=== PATIENT | male | born 1960 | race African-American/Black ===

== ENCOUNTER 2018-12-26 13:47 | Inpatient (IN) | payer OTHER ==
[2018-12-26 17:27] VITALS: BMI 21.1
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
[2018-12-26] MEDS ORDERED: ALBUTEROL SO4 8 GM HFA INHALER IH PRN (18:32)
[2018-12-26] MEDS ORDERED: hydrOXYzine PAMOATE 25 MG CAPSULE (FP) PO PRN (18:40)
[2018-12-26] MEDS ORDERED: ACETAMINOPHEN 325 MG TABLET (FP) PO PRN ×2 (18:40)
[2018-12-26] MEDS ORDERED: METHOCARBAMOL 500 MG TABLET PO PRN (18:40)
[2018-12-26] MEDS ORDERED: MENTHOL/PHENOL 1 EACH UD MM PRN (18:40)
[2018-12-26] MEDS ORDERED: MAGNESIUM HYDROX 2400MG/30ML ORAL SUSPENSION 30 ML CUP PO PRN (18:40)
[2018-12-26] MEDS ORDERED: MAG HYDROX/AL HYDROX/SIMETH 30 ML UNIT-DOSE CUP PO PRN (18:40)
[2018-12-26] MEDS ORDERED: chlordiazePOXIDE HCL 25 MG CAPSULE PO PRN (18:40)
[2018-12-26] MEDS ORDERED: IBUPROFEN 400 MG TABLET (FP) PO PRN (18:40)
[2018-12-26] MEDS ORDERED: NICOTINE POLACRILEX 2 MG GUM BUC PRN (18:40)
[2018-12-26] MEDS ORDERED: MAGNESIUM CITRATE 300 ML BOTTLE PO PRN (18:40)
[2018-12-26] MEDS ORDERED: PATIENT'S OWN MEDICATION (NON-FORMULARY) (Metformin Hcl [Glucophage] 1,000 MG) PO SCH (22:00)
[2018-12-26] MEDS: ATORVASTATIN CA 10 MG TABLET (FP) PO SCH (22:07)
[2018-12-26] MEDS: THIAMINE HCL 100 MG TABLET (FP) PO SCH (22:07)
[2018-12-26] MEDS: chlordiazePOXIDE HCL 25 MG CAPSULE PO SCH (22:07)
[2018-12-26] MEDS: GABAPENTIN 300 MG CAPSULE (FP) PO SCH (22:07)
[2018-12-27] MEDS: GABAPENTIN 300 MG CAPSULE (FP) PO SCH ×3 (05:15→22:25)
[2018-12-27] MEDS: chlordiazePOXIDE HCL 25 MG CAPSULE PO SCH ×4 (05:15→22:25)
[2018-12-27] MEDS: metFORMIN HCL 500 MG TABLET (FP) PO SCH ×2 (06:12→18:12)
[2018-12-27 10:02] LABS: HEMATOCRIT 38.6 % (35.4-49); HEMOGLOBIN 12.9 GM/dL (11.7-16.9); MCH 29.8 pg (25.7-33.7); MCHC 33.4 g/dl (32.0-35.9); MEAN CELL VOLUME 89.2 fl (80-96); MEAN PLT VOLUME 8.6 fl (7.5-11.1); PLATELET COUNT 197 K/MM3 (134-434); RBC 4.33 M/mm3 (4.00-5.60); RDW 14.3 % (11.9-15.9); WHITE BLOOD COUNT 2.1 K/mm3 (4.0-10.0)
[2018-12-27 10:20] LABS: ALBUMIN 3.2 g/dl (3.4-5.0); BILIRUBIN,TOTAL 0.2 mg/dL (0.2-1); CALCIUM 9.3 mg/dL (8.5-10.1); CREATININE 0.8 mg/dL (0.55-1.3); POTASSIUM 4.2 mmol/L (3.5-5.1); TOT PROT 7.8 g/dl (6.4-8.2)
--- NOTE | 2018-12-27 10:53 | EKG ---
Test Reason : Blood Pressure : / mmHG Vent. Rate : 061 BPM Atrial Rate : 061 BPM P-R Int : 210 ms QRS Dur : 104 ms QT Int : 450 ms P-R-T Axes : 045 028 056 degrees QTc Int : 453 ms SINUS RHYTHM WITH 1ST DEGREE A-V BLOCK POSSIBLE LEFT ATRIAL ENLARGEMENT LEFT VENTRICULAR HYPERTROPHY ST ELEVATION, CONSIDER EARLY REPOLARIZATION, PERICARDITIS, OR INJURY NONSPECIFIC T WAVE ABNORMALITY ABNORMAL ECG NO PREVIOUS ECGS AVAILABLE Confirmed by VERA SO MD ([id number]) on 12/27/2018 10:53:20 AM Referred By: Confirmed By:VERA SO MD
[2018-12-27] MEDS: NICOTINE 14 MG/24 HOURS TOPICAL PATCH TD SCH (11:09)
[2018-12-27] MEDS: amLODIPine BESYLATE 5 MG TABLET (FP) PO SCH (11:10)
[2018-12-27] MEDS: PRENATAL VITAMINS W/ FOLIC ACID TABLET (FP) PO SCH (11:10)
--- NOTE | 2018-12-27 12:06 | PN ---
S CIWA - CIWA Score Nausea/Vomitin-No Nausea/No Vomiting Muscle Tremors: 4-Moderate,w/Arms Extend Anxiety: 4-Mod. Anxious/Guarded Agitation: 2 Paroxysmal Sweats: No Perspiration Orientation: 0-Oriented Tacttile Disturbances: 0-None Auditory Disturbances: 0-None Visual Disturbances: 0-None Headache: 0-None Present CIWA-Ar Total Score: 10 BHS Progress Note (SOAP) Subjective: C/O ANXIETY, SWEATS, FATIGUE, INTERMITTENT SLEEP. ON MMTP WITH METHADONE 40 MG PO DAILY, L/D 12/26/18 VERIFIED. Objective: 12/27/18 12:06 Vital Signs 12/27/18 12/27/18 06:03 09:13 Temperature 98.1 F 98.1 F Pulse Rate 72 80 Respiratory 18 16 Rate Blood Pressure 115/67 132/79 Laboratory Tests 12/27/18 12/27/18 12/27/18 05:14 07:45 07:45 WBC 2.1 L RBC 4.33 Hgb 12.9 Hct 38.6 MCV 89.2 MCH 29.8 MCHC 33.4 RDW 14.3 Plt Count 197 MPV 8.6 Sodium 141 Potassium 4.2 Chloride 103 Carbon Dioxide 32 Anion Gap 6 L BUN 19 H Creatinine 0.8 Est GFR (CKD-EPI)AfAm 115.74 Est GFR (CKD-EPI)NonAf 99.86 POC Glucometer 94 Random Glucose 113 H Calcium 9.3 Total Bilirubin 0.2 AST 27 ALT 17 Alkaline Phosphatase 95 Total Protein 7.8 Albumin 3.2 L Assessment: 12/27/18 12:07 WITHDRAWAL SX Plan: CONTINUE DETOX. METHADONE 40 MG PO DAILY.
[2018-12-27] MEDS ORDERED: METHADONE HCL 40 MG DISPERSABLE TABLET PO ONE (12:15)
--- NOTE | 2018-12-27 17:58 | CONSULT ---
[facility] Psychiatric Consult - Data Date of interview: 12/27/18 Substance Abuse History: Smoking history: Current every day smoker. Have you smoked in the past 12 months: No. Aproximately how many cigarettes per day: 5. Cigars Per Day: 0. Hx Chewing Tobacco Use: No. Initiated information on smoking cessation: Yes. 'Breaking Loose' booklet given: 12/26/18. - Substance & Tx. History. Hx Alcohol Use: Yes. Hx Substance Use: Yes. Substance Use Type : Alcohol, Cocaine. Hx Substance Use Treatment: Yes (Last detox one year at [facility] - Substances abused. Alcohol. Substance route: Oral. Frequency: Daily. Amount used: 1 pint of vodka/day. Age of first use: 12. Date of last use: 12/26/18. Cocaine. Substance route: Inhalation. Frequency: 1-2 times per week. Amount used: $50 -200. Age of first use: 37. Date of last use: 12/24/18 Medical History: Chronic back pain, Spinal fusion, HIV, HTN, DM II Additional Comment: Urine drug screen results: THC-Marijuana, FAISAL-Cocaine, MTD- Methadone, BUP-Suboxone. Noted. Mental Status Exam - Mental Status Exam Alert and Oriented to: Place, Person Cognitive Function: Grossly Intact Patient Appearance: Unkempt, Disheveled Mood: Nervous, Withdrawn Affect: Mood Congruent, Constricted Patient Behavior: Sedated, Fatigued, Cooperative Speech Pattern: Delayed, Slurred Voice Loudness: Moderately Soft/Quiet Thought Process: Goal Oriented Thought Disorder: Not Present Hallucinations: Denies Suicidal Ideation: Denies Homicidal Ideation: Denies Insight/Judgement: Poor Sleep: Well Appetite: Good Muscle strength/Tone: Normal Gait/Station: Other (slow, unsteady) Psychiatric Findings - Problem List ([place] 1, 2,3) (1) Alcohol dependence with uncomplicated withdrawal Current Visit: Yes Status: Acute (2) Opioid dependence on agonist therapy Current Visit: Yes Status: Chronic (3) Cocaine dependence Current Visit: Yes Status: Chronic Qualifiers: Substance use status: uncomplicated Qualified Code(s): F14.20 - Cocaine dependence, uncomplicated (4) Nicotine dependence Current Visit: Yes Status: Chronic Qualifiers: Nicotine product type: cigarettes Substance use status: uncomplicated Qualified Code(s): F17.210 - Nicotine dependence, cigarettes, uncomplicated (5) Substance induced mood disorder Current Visit: Yes Status: Chronic (6) History of depression Current Visit: Yes Status: Chronic (7) Non-compliance Current Visit: Yes Status: Chronic - Initial Treatment Plan Initial Treatment Plan: Psychoeducation. Patient declines to resume psychotropic medications other than detoxification drugs. Sleep hygiene. Observation.
[2018-12-27] MEDS: ATORVASTATIN CA 10 MG TABLET (FP) PO SCH (22:25)
[2018-12-27] MEDS: THIAMINE HCL 100 MG TABLET (FP) PO SCH (22:25)
[2018-12-28] MEDS: GABAPENTIN 300 MG CAPSULE (FP) PO SCH ×3 (05:04→22:59)
[2018-12-28] MEDS: METHADONE HCL 40 MG DISPERSABLE TABLET PO SCH (05:04)
[2018-12-28] MEDS: metFORMIN HCL 500 MG TABLET (FP) PO SCH ×2 (06:26→17:48)
[2018-12-28] MEDS: chlordiazePOXIDE HCL 25 MG CAPSULE PO SCH ×3 (06:27→17:51)
[2018-12-28] MEDS: NICOTINE 14 MG/24 HOURS TOPICAL PATCH TD SCH (11:01)
[2018-12-28] MEDS: PRENATAL VITAMINS W/ FOLIC ACID TABLET (FP) PO SCH (11:03)
[2018-12-28] MEDS: amLODIPine BESYLATE 5 MG TABLET (FP) PO SCH (11:24)
--- NOTE | 2018-12-28 12:14 | PN ---
S CIWA - CIWA Score Nausea/Vomitin-No Nausea/No Vomiting Muscle Tremors: 3 Anxiety: 2 Agitation: 2 Paroxysmal Sweats: 1-Minimal Palms Moist Orientation: 0-Oriented Tacttile Disturbances: 0-None Auditory Disturbances: 0-None Visual Disturbances: 0-None Headache: 0-None Present CIWA-Ar Total Score: 8 BHS Progress Note (SOAP) Subjective: tremor tired trouble sleep at night Objective: 12/28/18 12:12 Vital Signs Temperature 97.5 F L 12/28/18 09:10 Pulse Rate 78 12/28/18 09:10 Respiratory Rate 18 12/28/18 09:10 Blood Pressure 142/92 12/28/18 09:10 O2 Sat by Pulse Oximetry (%) Laboratory Last Values WBC 2.1 K/mm3 (4.0-10.0) L 12/27/18 07:45 RBC 4.33 M/mm3 (4.00-5.60) 12/27/18 07:45 Hgb 12.9 GM/dL (11.7-16.9) 12/27/18 07:45 Hct 38.6 % (35.4-49) 12/27/18 07:45 MCV 89.2 fl (80-96) 12/27/18 07:45 MCH 29.8 pg (25.7-33.7) 12/27/18 07:45 MCHC 33.4 g/dl (32.0-35.9) 12/27/18 07:45 RDW 14.3 % (11.9-15.9) 12/27/18 07:45 Plt Count 197 K/MM3 (134-434) 12/27/18 07:45 MPV 8.6 fl (7.5-11.1) 12/27/18 07:45 Sodium 141 mmol/L (136-145) 12/27/18 07:45 Potassium 4.2 mmol/L (3.5-5.1) 12/27/18 07:45 Chloride 103 mmol/L (98-107) 12/27/18 07:45 Carbon Dioxide 32 mmol/L (21-32) 12/27/18 07:45 Anion Gap 6 MMOL/L (8-16) L 12/27/18 07:45 BUN 19 mg/dL (7-18) H 12/27/18 07:45 Creatinine 0.8 mg/dL (0.55-1.3) 12/27/18 07:45 Est GFR (CKD-EPI)AfAm 115.74 12/27/18 07:45 Est GFR (CKD-EPI)NonAf 99.86 12/27/18 07:45 POC Glucometer 111 UNITS (80-120) 12/28/18 05:03 Random Glucose 113 mg/dL (74-106) H 12/27/18 07:45 Calcium 9.3 mg/dL (8.5-10.1) 12/27/18 07:45 Total Bilirubin 0.2 mg/dL (0.2-1) 12/27/18 07:45 AST 27 U/L (15-37) 12/27/18 07:45 ALT 17 U/L (13-61) 12/27/18 07:45 Alkaline Phosphatase 95 U/L (45-117) 12/27/18 07:45 Total Protein 7.8 g/dl (6.4-8.2) 12/27/18 07:45 Albumin 3.2 g/dl (3.4-5.0) L 12/27/18 07:45 RPR Titer Nonreactive (NONREACTIVE) 12/27/18 07:45 lab noted long history of low wbc hiv status follow up with infectious disease specialist 12/28/18 12:13 Assessment: 12/28/18 12:14 withdrawal sx Plan: continue detox
[2018-12-28] MEDS: THIAMINE HCL 100 MG TABLET (FP) PO SCH (22:59)
[2018-12-28] MEDS: ATORVASTATIN CA 10 MG TABLET (FP) PO SCH (22:59)
[2018-12-28] MEDS: chlordiazePOXIDE HCL 10 MG CAPSULE PO SCH (22:59)
[2018-12-28] MEDS ORDERED: chlordiazePOXIDE HCL 10 MG CAPSULE PO PRN (23:00)
[2018-12-28] MEDS: MELATONIN 5 MG TABLETS PO PRN (23:16)
[2018-12-29] MEDS: BISMUTH SUBSALICYLATE 524 MG/30 ML UD PO PRN ×3 (03:40→17:40)
[2018-12-29] MEDS: GABAPENTIN 300 MG CAPSULE (FP) PO SCH ×3 (05:10→22:19)
[2018-12-29] MEDS: METHADONE HCL 40 MG DISPERSABLE TABLET PO SCH (05:10)
[2018-12-29] MEDS: metFORMIN HCL 500 MG TABLET (FP) PO SCH ×2 (06:13→17:38)
[2018-12-29] MEDS: chlordiazePOXIDE HCL 10 MG CAPSULE PO SCH ×4 (06:13→22:19)
[2018-12-29] MEDS: NICOTINE 14 MG/24 HOURS TOPICAL PATCH TD SCH (10:15)
[2018-12-29] MEDS: amLODIPine BESYLATE 5 MG TABLET (FP) PO SCH (10:16)
[2018-12-29] MEDS: PRENATAL VITAMINS W/ FOLIC ACID TABLET (FP) PO SCH (10:16)
--- NOTE | 2018-12-29 12:49 | PN ---
S CIWA - CIWA Score Nausea/Vomitin-Mild Nausea/No Vomiting Muscle Tremors: 1-None Visible, but [place] Anxiety: 1-Mildly Anxious Agitation: 1-Slight > Activity Paroxysmal Sweats: No Perspiration Orientation: 0-Oriented Tacttile Disturbances: 0-None Auditory Disturbances: 0-None Visual Disturbances: 0-None Headache: 0-None Present CIWA-Ar Total Score: 4 BHS Progress Note (SOAP) Subjective: feeling better today social with peers in day room encourage discuss strategy maintenance sobriety Objective: 12/29/18 12:50 Vital Signs Temperature 98.7 F 12/29/18 09:21 Pulse Rate 78 12/29/18 09:21 Respiratory Rate 18 12/29/18 09:21 Blood Pressure 136/79 12/29/18 09:21 O2 Sat by Pulse Oximetry (%) Laboratory Last Values WBC 2.1 K/mm3 (4.0-10.0) L 12/27/18 07:45 RBC 4.33 M/mm3 (4.00-5.60) 12/27/18 07:45 Hgb 12.9 GM/dL (11.7-16.9) 12/27/18 07:45 Hct 38.6 % (35.4-49) 12/27/18 07:45 MCV 89.2 fl (80-96) 12/27/18 07:45 MCH 29.8 pg (25.7-33.7) 12/27/18 07:45 MCHC 33.4 g/dl (32.0-35.9) 12/27/18 07:45 RDW 14.3 % (11.9-15.9) 12/27/18 07:45 Plt Count 197 K/MM3 (134-434) 12/27/18 07:45 MPV 8.6 fl (7.5-11.1) 12/27/18 07:45 Sodium 141 mmol/L (136-145) 12/27/18 07:45 Potassium 4.2 mmol/L (3.5-5.1) 12/27/18 07:45 Chloride 103 mmol/L (98-107) 12/27/18 07:45 Carbon Dioxide 32 mmol/L (21-32) 12/27/18 07:45 Anion Gap 6 MMOL/L (8-16) L 12/27/18 07:45 BUN 19 mg/dL (7-18) H 12/27/18 07:45 Creatinine 0.8 mg/dL (0.55-1.3) 12/27/18 07:45 Est GFR (CKD-EPI)AfAm 115.74 12/27/18 07:45 Est GFR (CKD-EPI)NonAf 99.86 12/27/18 07:45 POC Glucometer 101 UNITS (80-120) 12/29/18 05:09 Random Glucose 113 mg/dL (74-106) H 12/27/18 07:45 Calcium 9.3 mg/dL (8.5-10.1) 12/27/18 07:45 Total Bilirubin 0.2 mg/dL (0.2-1) 12/27/18 07:45 AST 27 U/L (15-37) 12/27/18 07:45 ALT 17 U/L (13-61) 12/27/18 07:45 Alkaline Phosphatase 95 U/L (45-117) 12/27/18 07:45 Total Protein 7.8 g/dl (6.4-8.2) 12/27/18 07:45 Albumin 3.2 g/dl (3.4-5.0) L 12/27/18 07:45 RPR Titer Nonreactive (NONREACTIVE) 12/27/18 07:45 lab noted 12/29/18 12:50 follow up with infectious disease specialist for low wbc Assessment: 12/29/18 12:51 alcohol withdrawal sx Plan: continue detox
[2018-12-29] MEDS: ATORVASTATIN CA 10 MG TABLET (FP) PO SCH (22:19)
[2018-12-29] MEDS: THIAMINE HCL 100 MG TABLET (FP) PO SCH (22:19)
[2018-12-29] MEDS: MELATONIN 5 MG TABLETS PO PRN (22:20)
[2018-12-30] MEDS: GABAPENTIN 300 MG CAPSULE (FP) PO SCH (05:45)
[2018-12-30] MEDS: METHADONE HCL 40 MG DISPERSABLE TABLET PO SCH (05:45)
[2018-12-30] MEDS: metFORMIN HCL 500 MG TABLET (FP) PO SCH (06:16)
[2018-12-30 09:13] VITALS: BP 141/92; PULSE 86; TEMP 97.9
[2018-12-30] MEDS: NICOTINE 14 MG/24 HOURS TOPICAL PATCH TD SCH (10:34)
[2018-12-30] MEDS: amLODIPine BESYLATE 5 MG TABLET (FP) PO SCH (10:34)
[2018-12-30] MEDS: PRENATAL VITAMINS W/ FOLIC ACID TABLET (FP) PO SCH (10:34)
[2018-12-30] MEDS: chlordiazePOXIDE HCL 10 MG CAPSULE PO SCH (10:34)
[2018-12-30] MEDS: BISMUTH SUBSALICYLATE 524 MG/30 ML UD PO PRN (11:04)
--- NOTE | 2018-12-30 13:16 | DS ---
[facility] Detox Discharge Summary Admission Date: 12/26/18 Discharge Date: 12/30/18 - History Present History: Alcohol Dependence Additional Comments: 58 years old male admitted on 12/26/18 for alcohol withdrawal stabilization completed detox regimen [facility] - Physical Exam Results Vital Signs: Vital Signs Temperature 97.9 F 12/30/18 09:12 Pulse Rate 86 12/30/18 09:12 Respiratory Rate 18 12/30/18 09:12 Blood Pressure 141/92 12/30/18 09:12 O2 Sat by Pulse Oximetry (%) Pertinent Admission Physical Exam Findings: alcohol withdrawal sx Laboratory Last Values WBC 2.1 K/mm3 (4.0-10.0) L 12/27/18 07:45 RBC 4.33 M/mm3 (4.00-5.60) 12/27/18 07:45 Hgb 12.9 GM/dL (11.7-16.9) 12/27/18 07:45 Hct 38.6 % (35.4-49) 12/27/18 07:45 MCV 89.2 fl (80-96) 12/27/18 07:45 MCH 29.8 pg (25.7-33.7) 12/27/18 07:45 MCHC 33.4 g/dl (32.0-35.9) 12/27/18 07:45 RDW 14.3 % (11.9-15.9) 12/27/18 07:45 Plt Count 197 K/MM3 (134-434) 12/27/18 07:45 MPV 8.6 fl (7.5-11.1) 12/27/18 07:45 Sodium 141 mmol/L (136-145) 12/27/18 07:45 Potassium 4.2 mmol/L (3.5-5.1) 12/27/18 07:45 Chloride 103 mmol/L (98-107) 12/27/18 07:45 Carbon Dioxide 32 mmol/L (21-32) 12/27/18 07:45 Anion Gap 6 MMOL/L (8-16) L 12/27/18 07:45 BUN 19 mg/dL (7-18) H 12/27/18 07:45 Creatinine 0.8 mg/dL (0.55-1.3) 12/27/18 07:45 Est GFR (CKD-EPI)AfAm 115.74 12/27/18 07:45 Est GFR (CKD-EPI)NonAf 99.86 12/27/18 07:45 POC Glucometer 93 UNITS (80-120) 12/30/18 05:47 Random Glucose 113 mg/dL (74-106) H 12/27/18 07:45 Calcium 9.3 mg/dL (8.5-10.1) 12/27/18 07:45 Total Bilirubin 0.2 mg/dL (0.2-1) 12/27/18 07:45 AST 27 U/L (15-37) 12/27/18 07:45 ALT 17 U/L (13-61) 12/27/18 07:45 Alkaline Phosphatase 95 U/L (45-117) 12/27/18 07:45 Total Protein 7.8 g/dl (6.4-8.2) 12/27/18 07:45 Albumin 3.2 g/dl (3.4-5.0) L 12/27/18 07:45 RPR Titer Nonreactive (NONREACTIVE) 12/27/18 07:45 lab noted long history of hiv low wbc - Treatment Hospital Course: Detox Protocol Followed, Detoxed Safely, Responded well, Discharged Condition Good, Rehab Referral Accepted Patient has Accepted a Rehab Referral to: [facility] - Medication Discharge Medications: Ambulatory Orders Multivitamin [Poly-Vitamin] 1 each PO DAILY 12/02/15 Omeprazole 20 mg PO HS #30 capsule. 01/25/16 Cyanocobalamin [Vitamin B12 -] 100 mcg PO DAILY 07/13/16 Albuterol Sulfate Inhaler - [Ventolin HFA Inhaler -] 2 puff IH Q4H PRN #1 inhaler 08/09/16 Bupropion HCl [Wellbutrin Xl -] 300 mg PO DAILY #30 tab.sr.24h 08/09/16 Amlodipine Besylate [Norvasc -] 5 mg PO DAILY #30 tablet 12/29/18 Atorvastatin Ca [Lipitor] 10 mg PO HS #30 tablet 12/29/18 metFORMIN HCL [Glucophage -] 1,000 mg PO BID@07,1630 #60 tablet 12/29/18 Gabapentin [Neurontin] 300 mg PO TID 12/30/18 - Diagnosis (1) HIV (human immunodeficiency virus infection) Current Visit: Yes Status: Chronic Qualifiers: HIV symptom status: asymptomatic Qualified Code(s): Z21 - Asymptomatic human immunodeficiency virus [HIV] infection status (2) Hypercholesterolemia Current Visit: Yes Status: Chronic (3) Diabetes mellitus type II, controlled Current Visit: Yes Status: Chronic Qualifiers: Diabetes mellitus detention insulin use: unspecified detention insulin use status Diabetes mellitus complication status: without complication Qualified Code(s): E11.9 - Type 2 diabetes mellitus without complications (4) Glaucoma Current Visit: Yes Status: Chronic Qualifiers: Glaucoma type: unspecified Laterality: right Qualified Code(s): H40.9 - Unspecified glaucoma (5) Hypertension Current Visit: Yes Status: Chronic Qualifiers: Hypertension type: essential hypertension (6) Nicotine dependence Current Visit: Yes Status: Acute Qualifiers: Nicotine product type: cigarettes Substance use status: in withdrawal Qualified Code(s): F17.213 - Nicotine dependence, cigarettes, with withdrawal (7) GERD (gastroesophageal reflux disease) Current Visit: Yes Status: Chronic Qualifiers: Esophagitis presence: without esophagitis Qualified Code(s): K21.9 - Gastro -esophageal reflux disease without esophagitis (8) Alcohol dependence with uncomplicated withdrawal Current Visit: Yes Status: Acute - AMA Did Patient Leave Against Medical Advice: No
== END 2018-12-30 12:24 | disposition other institution (70) | DRG 897 ==
LOC: YASAS 13:47 → Y3N 18:42
PROVIDERS: ADMIT Surgery; ATTEND Surgery
PROC: HZ2ZZZZ Detoxification Services for Substance Abuse Treatment (ICD-10-PCS; principal; 2018-12-26)
DX: F10.230 Alcohol dependence with withdrawal, uncomplicated (principal); F11.20 Opioid dependence, uncomplicated; F14.20 Cocaine dependence, uncomplicated; F17.213 Nicotine dependence, cigarettes, with withdrawal; F19.24 Other psychoactive substance dependence with psychoactive substance-induced mood disorder; I10 Essential (primary) hypertension; E11.9 Type 2 diabetes mellitus without complications; E78.00 Pure hypercholesterolemia, unspecified; Z21 Asymptomatic human immunodeficiency virus [HIV] infection status; H40.9 Unspecified glaucoma; K21.9 Gastro-esophageal reflux disease without esophagitis; M54.5 Low back pain; G89.29 Other chronic pain; Z91.19 Patient's noncompliance with other medical treatment and regimen; Z87.438 Personal history of other diseases of male genital organs
CPT/HCPCS: 36415; 80053; 82962; 85027; 86593; 93005; 93010

== ENCOUNTER 2018-12-30 12:18 | Inpatient (IN) | payer OTHER ==
--- NOTE | 2018-12-30 13:20 | HP ---
[facility] Rehab Assess/Revision - Admission History Admitted to Rehab from: [facility] Date of Admission to Rehab: 12/30/18 - Vital signs Vital Signs: Vital Signs Period Temp Pulse Resp BP Sys/Arana Pulse Ox Last 24 Hr 98.1 F 79 18 149/83 - Findings Detox History & Physical reviewed: Yes Concur with findings: Yes Comments/Additional Findings: transferred from detox to rehab admission as per protocol Inpatient Rehab Admission - Rehab Decision to Admit Inpatient rehab admission?: Yes - Initial Determination Are CD services needed?: Yes Free of communicable disease: Yes Not in need of hospitalization: Yes - Rehab Admission Criteria Previous failed treatment: Yes Poor recovery environment: Yes Comorbidities: Yes Lacks judgement: No Patient is meeting Inpatient Rehab admission criteria:: Yes
[2018-12-30] MEDS ORDERED: guaiFENesin 200 MG/10 ML 10 ML UNIT-DOSE CUPS PO PRN (13:21)
[2018-12-30] MEDS ORDERED: ACETAMINOPHEN 325 MG TABLET (FP) PO PRN (13:21)
[2018-12-30] MEDS ORDERED: IBUPROFEN 400 MG TABLET (FP) PO PRN (13:21)
[2018-12-30] MEDS ORDERED: MENTHOL/PHENOL 1 EACH UD MM PRN (13:21)
[2018-12-30] MEDS ORDERED: NICOTINE POLACRILEX 2 MG GUM BUC PRN (13:21)
[2018-12-30] MEDS ORDERED: NICOTINE 14 MG/24 HOURS TOPICAL PATCH TD PRN (13:21)
[2018-12-30] MEDS ORDERED: MAG HYDROX/AL HYDROX/SIMETH 30 ML UNIT-DOSE CUP PO PRN (13:21)
[2018-12-30] MEDS ORDERED: P-EPHED 60MG/TRIPROLIDI 2.5MG TABLET PO PRN (13:21)
[2018-12-30] MEDS ORDERED: ALBUTEROL SO4 8 GM HFA INHALER IH PRN (13:23)
[2018-12-30] MEDS: GABAPENTIN 300 MG CAPSULE (FP) PO SCH ×2 (14:07→21:19)
[2018-12-30] MEDS: metFORMIN HCL 500 MG TABLET (FP) PO SCH (16:48)
[2018-12-30] MEDS: ATORVASTATIN CA 10 MG TABLET (FP) PO SCH (21:19)
[2018-12-30] MEDS: THIAMINE HCL 100 MG TABLET (FP) PO SCH (21:19)
[2018-12-30] MEDS: MELATONIN 5 MG TABLETS PO PRN (21:20)
[2018-12-31] MEDS: METHADONE HCL 40 MG DISPERSABLE TABLET PO SCH (06:10)
[2018-12-31] MEDS: GABAPENTIN 300 MG CAPSULE (FP) PO SCH ×3 (06:10→21:14)
[2018-12-31] MEDS: metFORMIN HCL 500 MG TABLET (FP) PO SCH ×2 (07:19→16:46)
[2018-12-31] MEDS: LOPERAMIDE HCL 2 MG CAPSULE PO PRN ×2 (07:46→21:15)
[2018-12-31] MEDS ORDERED: BISMUTH SUBSALICYLATE 262 MG/15 ML BTL PO PRN (09:52)
[2018-12-31] MEDS: amLODIPine BESYLATE 5 MG TABLET (FP) PO SCH (10:25)
[2018-12-31] MEDS: PRENATAL VITAMINS W/ FOLIC ACID TABLET (FP) PO SCH (10:25)
[2018-12-31] MEDS: INSULIN (NOVOLOG) ASPART 100 UNITS/ML 10ML VIAL SQ SCH (16:47)
[2018-12-31] MEDS: ATORVASTATIN CA 10 MG TABLET (FP) PO SCH (21:14)
[2018-12-31] MEDS: THIAMINE HCL 100 MG TABLET (FP) PO SCH (21:14)
[2019-01-01] MEDS: METHADONE HCL 40 MG DISPERSABLE TABLET PO SCH (06:07)
[2019-01-01] MEDS: INSULIN (NOVOLOG) ASPART 100 UNITS/ML 10ML VIAL SQ SCH ×2 (06:09→16:26)
[2019-01-01] MEDS: GABAPENTIN 300 MG CAPSULE (FP) PO SCH ×3 (06:09→22:06)
[2019-01-01] MEDS: metFORMIN HCL 500 MG TABLET (FP) PO SCH ×2 (06:09→16:26)
[2019-01-01] MEDS: amLODIPine BESYLATE 5 MG TABLET (FP) PO SCH (10:15)
[2019-01-01] MEDS: PRENATAL VITAMINS W/ FOLIC ACID TABLET (FP) PO SCH (10:15)
[2019-01-01] MEDS: THIAMINE HCL 100 MG TABLET (FP) PO SCH (22:06)
[2019-01-01] MEDS: MELATONIN 5 MG TABLETS PO PRN (22:06)
[2019-01-01] MEDS: ATORVASTATIN CA 10 MG TABLET (FP) PO SCH (22:06)
[2019-01-02] MEDS: METHADONE HCL 40 MG DISPERSABLE TABLET PO SCH (06:14)
[2019-01-02] MEDS: GABAPENTIN 300 MG CAPSULE (FP) PO SCH ×3 (06:15→21:12)
[2019-01-02] MEDS: INSULIN (NOVOLOG) ASPART 100 UNITS/ML 10ML VIAL SQ SCH ×2 (06:17→17:25)
[2019-01-02] MEDS: metFORMIN HCL 500 MG TABLET (FP) PO SCH ×2 (06:52→16:45)
[2019-01-02] MEDS: PRENATAL VITAMINS W/ FOLIC ACID TABLET (FP) PO SCH (09:50)
[2019-01-02] MEDS: amLODIPine BESYLATE 5 MG TABLET (FP) PO SCH (09:50)
[2019-01-02] MEDS: MELATONIN 5 MG TABLETS PO PRN (21:12)
[2019-01-02] MEDS: THIAMINE HCL 100 MG TABLET (FP) PO SCH (21:12)
[2019-01-02] MEDS: ATORVASTATIN CA 10 MG TABLET (FP) PO SCH (21:12)
[2019-01-03] MEDS: GABAPENTIN 300 MG CAPSULE (FP) PO SCH ×3 (05:58→21:56)
[2019-01-03] MEDS: METHADONE HCL 40 MG DISPERSABLE TABLET PO SCH (05:58)
[2019-01-03] MEDS: INSULIN (NOVOLOG) ASPART 100 UNITS/ML 10ML VIAL SQ SCH ×2 (06:23→16:46)
[2019-01-03] MEDS: metFORMIN HCL 500 MG TABLET (FP) PO SCH ×2 (07:03→16:47)
[2019-01-03] MEDS: PRENATAL VITAMINS W/ FOLIC ACID TABLET (FP) PO SCH (10:23)
[2019-01-03] MEDS: amLODIPine BESYLATE 5 MG TABLET (FP) PO SCH (10:23)
[2019-01-03] MEDS: MELATONIN 5 MG TABLETS PO PRN (21:56)
[2019-01-03] MEDS: THIAMINE HCL 100 MG TABLET (FP) PO SCH (21:56)
[2019-01-03] MEDS: ATORVASTATIN CA 10 MG TABLET (FP) PO SCH (21:56)
[2019-01-04] MEDS: METHADONE HCL 40 MG DISPERSABLE TABLET PO SCH (06:16)
[2019-01-04] MEDS: GABAPENTIN 300 MG CAPSULE (FP) PO SCH ×3 (06:16→21:20)
[2019-01-04] MEDS: INSULIN (NOVOLOG) ASPART 100 UNITS/ML 10ML VIAL SQ SCH ×2 (07:19→16:30)
[2019-01-04] MEDS: metFORMIN HCL 500 MG TABLET (FP) PO SCH ×2 (07:19→16:51)
[2019-01-04] MEDS: PRENATAL VITAMINS W/ FOLIC ACID TABLET (FP) PO SCH (10:28)
[2019-01-04] MEDS: amLODIPine BESYLATE 5 MG TABLET (FP) PO SCH (10:28)
[2019-01-04] MEDS: MELATONIN 5 MG TABLETS PO PRN (21:20)
[2019-01-04] MEDS: ATORVASTATIN CA 10 MG TABLET (FP) PO SCH (21:20)
[2019-01-04] MEDS: THIAMINE HCL 100 MG TABLET (FP) PO SCH (21:20)
[2019-01-05] MEDS: GABAPENTIN 300 MG CAPSULE (FP) PO SCH ×3 (05:44→21:32)
[2019-01-05] MEDS: METHADONE HCL 40 MG DISPERSABLE TABLET PO SCH (05:44)
[2019-01-05] MEDS: INSULIN (NOVOLOG) ASPART 100 UNITS/ML 10ML VIAL SQ SCH ×2 (07:38→16:42)
[2019-01-05] MEDS: metFORMIN HCL 500 MG TABLET (FP) PO SCH ×2 (07:39→16:45)
[2019-01-05] MEDS: amLODIPine BESYLATE 5 MG TABLET (FP) PO SCH (09:46)
[2019-01-05] MEDS: PRENATAL VITAMINS W/ FOLIC ACID TABLET (FP) PO SCH (09:47)
[2019-01-05] MEDS ORDERED: INSULIN (NOVOLOG) ASPART 100 UNITS/ML 10ML VIAL ONE (16:24)
[2019-01-05] MEDS: ATORVASTATIN CA 10 MG TABLET (FP) PO SCH (21:32)
[2019-01-05] MEDS: THIAMINE HCL 100 MG TABLET (FP) PO SCH (21:32)
[2019-01-06] MEDS: METHADONE HCL 40 MG DISPERSABLE TABLET PO SCH (06:10)
[2019-01-06] MEDS: GABAPENTIN 300 MG CAPSULE (FP) PO SCH ×3 (06:11→21:19)
[2019-01-06] MEDS: INSULIN (NOVOLOG) ASPART 100 UNITS/ML 10ML VIAL SQ SCH ×2 (06:20→16:44)
[2019-01-06] MEDS: metFORMIN HCL 500 MG TABLET (FP) PO SCH (07:47)
[2019-01-06] MEDS: amLODIPine BESYLATE 5 MG TABLET (FP) PO SCH (09:55)
[2019-01-06] MEDS: PRENATAL VITAMINS W/ FOLIC ACID TABLET (FP) PO SCH (09:55)
--- NOTE | 2019-01-06 13:45 | PN ---
S Progress Note (SOAP) Subjective: patient c/o scrotal pain. PMHx of scrotal hernia; states he was supposed to have surgery but needed to come to detox/rehab first. States that the hernia usually retracts, but it will not retract. Objective: Testicles enlarged, Assessment: Scrotal hernia 01/06/19 13:45 Plan: Scrotal sling ordered.
[2019-01-06] MEDS: ATORVASTATIN CA 10 MG TABLET (FP) PO SCH (21:19)
[2019-01-06] MEDS: THIAMINE HCL 100 MG TABLET (FP) PO SCH (21:19)
[2019-01-06] MEDS: MELATONIN 5 MG TABLETS PO PRN (21:19)
[2019-01-07] MEDS: GABAPENTIN 300 MG CAPSULE (FP) PO SCH ×3 (06:02→21:29)
[2019-01-07] MEDS: METHADONE HCL 40 MG DISPERSABLE TABLET PO SCH (06:02)
[2019-01-07] MEDS: INSULIN (NOVOLOG) ASPART 100 UNITS/ML 10ML VIAL SQ SCH ×2 (07:05→19:43)
[2019-01-07] MEDS: PRENATAL VITAMINS W/ FOLIC ACID TABLET (FP) PO SCH (09:32)
[2019-01-07] MEDS: amLODIPine BESYLATE 5 MG TABLET (FP) PO SCH (09:32)
[2019-01-07] MEDS: MELATONIN 5 MG TABLETS PO PRN (21:29)
[2019-01-07] MEDS: ATORVASTATIN CA 10 MG TABLET (FP) PO SCH (21:29)
[2019-01-07] MEDS: THIAMINE HCL 100 MG TABLET (FP) PO SCH (21:29)
[2019-01-08] MEDS: METHADONE HCL 40 MG DISPERSABLE TABLET PO SCH (05:52)
[2019-01-08] MEDS: GABAPENTIN 300 MG CAPSULE (FP) PO SCH ×3 (05:52→21:16)
[2019-01-08] MEDS: INSULIN (NOVOLOG) ASPART 100 UNITS/ML 10ML VIAL SQ SCH ×2 (08:15→16:38)
[2019-01-08] MEDS: amLODIPine BESYLATE 5 MG TABLET (FP) PO SCH (09:43)
[2019-01-08] MEDS: PRENATAL VITAMINS W/ FOLIC ACID TABLET (FP) PO SCH (09:43)
[2019-01-08] MEDS: MELATONIN 5 MG TABLETS PO PRN (21:16)
[2019-01-08] MEDS: ATORVASTATIN CA 10 MG TABLET (FP) PO SCH (21:16)
[2019-01-08] MEDS: THIAMINE HCL 100 MG TABLET (FP) PO SCH (21:16)
[2019-01-09] MEDS: METHADONE HCL 40 MG DISPERSABLE TABLET PO SCH (05:53)
[2019-01-09] MEDS: GABAPENTIN 300 MG CAPSULE (FP) PO SCH ×3 (05:54→21:29)
[2019-01-09] MEDS: INSULIN (NOVOLOG) ASPART 100 UNITS/ML 10ML VIAL SQ SCH ×2 (07:11→16:24)
[2019-01-09] MEDS: PRENATAL VITAMINS W/ FOLIC ACID TABLET (FP) PO SCH (09:33)
[2019-01-09] MEDS: amLODIPine BESYLATE 5 MG TABLET (FP) PO SCH (09:33)
[2019-01-09] MEDS: ATORVASTATIN CA 10 MG TABLET (FP) PO SCH (21:29)
[2019-01-09] MEDS: THIAMINE HCL 100 MG TABLET (FP) PO SCH (21:29)
[2019-01-09] MEDS: MELATONIN 5 MG TABLETS PO PRN (21:29)
[2019-01-10] MEDS: MAGNESIUM HYDROX 2400MG/30ML ORAL SUSPENSION 30 ML CUP PO PRN (01:09)
[2019-01-10] MEDS: METHADONE HCL 40 MG DISPERSABLE TABLET PO SCH (06:35)
[2019-01-10] MEDS: GABAPENTIN 300 MG CAPSULE (FP) PO SCH ×3 (06:35→21:19)
[2019-01-10] MEDS: INSULIN (NOVOLOG) ASPART 100 UNITS/ML 10ML VIAL SQ SCH ×2 (06:38→16:44)
[2019-01-10] MEDS: PRENATAL VITAMINS W/ FOLIC ACID TABLET (FP) PO SCH (09:47)
[2019-01-10] MEDS: amLODIPine BESYLATE 5 MG TABLET (FP) PO SCH (09:47)
[2019-01-10] MEDS: MAGNESIUM CITRATE 300 ML BOTTLE PO PRN (09:48)
[2019-01-10] MEDS: ATORVASTATIN CA 10 MG TABLET (FP) PO SCH (21:19)
[2019-01-10] MEDS: THIAMINE HCL 100 MG TABLET (FP) PO SCH (21:19)
[2019-01-10] MEDS: MELATONIN 5 MG TABLETS PO PRN (21:19)
[2019-01-10] MEDS: DOCUSATE SODIUM 100 MG CAPSULE (FP) PO SCH (21:20)
[2019-01-11] MEDS: METHADONE HCL 40 MG DISPERSABLE TABLET PO SCH (06:22)
[2019-01-11] MEDS: GABAPENTIN 300 MG CAPSULE (FP) PO SCH ×3 (06:22→21:28)
[2019-01-11] MEDS: INSULIN (NOVOLOG) ASPART 100 UNITS/ML 10ML VIAL SQ SCH ×2 (06:24→17:30)
[2019-01-11] MEDS: PRENATAL VITAMINS W/ FOLIC ACID TABLET (FP) PO SCH (09:43)
[2019-01-11] MEDS: amLODIPine BESYLATE 5 MG TABLET (FP) PO SCH (09:43)
[2019-01-11] MEDS: ATORVASTATIN CA 10 MG TABLET (FP) PO SCH (21:28)
[2019-01-11] MEDS: DOCUSATE SODIUM 100 MG CAPSULE (FP) PO SCH (21:28)
[2019-01-11] MEDS: MELATONIN 5 MG TABLETS PO PRN (21:28)
[2019-01-11] MEDS: THIAMINE HCL 100 MG TABLET (FP) PO SCH (21:28)
[2019-01-12] MEDS: GABAPENTIN 300 MG CAPSULE (FP) PO SCH ×3 (06:03→21:15)
[2019-01-12] MEDS: METHADONE HCL 40 MG DISPERSABLE TABLET PO SCH (06:03)
[2019-01-12] MEDS: INSULIN (NOVOLOG) ASPART 100 UNITS/ML 10ML VIAL SQ SCH ×2 (07:37→16:46)
[2019-01-12] MEDS: PRENATAL VITAMINS W/ FOLIC ACID TABLET (FP) PO SCH (10:09)
[2019-01-12] MEDS: amLODIPine BESYLATE 5 MG TABLET (FP) PO SCH (10:09)
[2019-01-12] MEDS: THIAMINE HCL 100 MG TABLET (FP) PO SCH (21:15)
[2019-01-12] MEDS: DOCUSATE SODIUM 100 MG CAPSULE (FP) PO SCH (21:15)
[2019-01-12] MEDS: MELATONIN 5 MG TABLETS PO PRN (21:15)
[2019-01-12] MEDS: ATORVASTATIN CA 10 MG TABLET (FP) PO SCH (21:15)
[2019-01-13] MEDS: METHADONE HCL 40 MG DISPERSABLE TABLET PO SCH (06:14)
[2019-01-13] MEDS: GABAPENTIN 300 MG CAPSULE (FP) PO SCH ×3 (06:14→21:21)
[2019-01-13] MEDS: INSULIN (NOVOLOG) ASPART 100 UNITS/ML 10ML VIAL SQ SCH ×2 (07:05→16:56)
[2019-01-13] MEDS: PRENATAL VITAMINS W/ FOLIC ACID TABLET (FP) PO SCH (09:43)
[2019-01-13] MEDS: amLODIPine BESYLATE 5 MG TABLET (FP) PO SCH (09:44)
[2019-01-13] MEDS: metFORMIN HCL 500 MG TABLET (FP) PO SCH (16:51)
[2019-01-13] MEDS: ATORVASTATIN CA 10 MG TABLET (FP) PO SCH (21:21)
[2019-01-13] MEDS: DOCUSATE SODIUM 100 MG CAPSULE (FP) PO SCH (21:21)
[2019-01-13] MEDS: THIAMINE HCL 100 MG TABLET (FP) PO SCH (21:21)
[2019-01-13] MEDS: MELATONIN 5 MG TABLETS PO PRN (21:21)
[2019-01-14] MEDS: METHADONE HCL 40 MG DISPERSABLE TABLET PO SCH (06:01)
[2019-01-14] MEDS: GABAPENTIN 300 MG CAPSULE (FP) PO SCH ×3 (06:01→21:39)
[2019-01-14] MEDS: metFORMIN HCL 500 MG TABLET (FP) PO SCH (06:19)
[2019-01-14] MEDS: INSULIN (NOVOLOG) ASPART 100 UNITS/ML 10ML VIAL SQ SCH ×2 (06:19→16:56)
[2019-01-14] MEDS: amLODIPine BESYLATE 5 MG TABLET (FP) PO SCH (09:46)
[2019-01-14] MEDS: PRENATAL VITAMINS W/ FOLIC ACID TABLET (FP) PO SCH (09:46)
--- NOTE | 2019-01-14 11:26 | PN ---
S Progress Note Note: Patient with c/o that metformin dose is too high; states he has to eat too much food to keep his blood glucose stable and is afraid of gaining weight. Pt was weighed yesterday and his weight has not changed. Has good knowledge and control of his diabetes at home. Yesterday, his metformin was reduced to 500mg BID and his fingersticks remain in the 70s. Nurses have been giving him the metformin after breakfast to ensure his blood glucose does not go too low. PLAN : reduce metformin to once a day and continue to monitor.
[2019-01-14] MEDS: DOCUSATE SODIUM 100 MG CAPSULE (FP) PO SCH (21:38)
[2019-01-14] MEDS: MELATONIN 5 MG TABLETS PO PRN (21:39)
[2019-01-14] MEDS: THIAMINE HCL 100 MG TABLET (FP) PO SCH (21:39)
[2019-01-14] MEDS: ATORVASTATIN CA 10 MG TABLET (FP) PO SCH (21:39)
[2019-01-15] MEDS: GABAPENTIN 300 MG CAPSULE (FP) PO SCH ×3 (06:22→21:48)
[2019-01-15] MEDS: METHADONE HCL 40 MG DISPERSABLE TABLET PO SCH (06:22)
[2019-01-15] MEDS: metFORMIN HCL 500 MG TABLET (FP) PO SCH (06:23)
[2019-01-15] MEDS: INSULIN (NOVOLOG) ASPART 100 UNITS/ML 10ML VIAL SQ SCH (06:24)
[2019-01-15] MEDS: amLODIPine BESYLATE 5 MG TABLET (FP) PO SCH (09:55)
[2019-01-15] MEDS: PRENATAL VITAMINS W/ FOLIC ACID TABLET (FP) PO SCH (09:55)
--- NOTE | 2019-01-15 15:12 | PN ---
[facility] Progress Note Note: 58 yeas old male admitted on 12/30/18 for alcohol rehab doing well with diabetes dietary regimen average bgm below 100 metform reduced to 500 mg po daily bgm along with metformin schedule doing well with testicle sling denies pain retractable hernia Vital Signs Temperature 98 F 01/15/19 06:43 Pulse Rate 73 01/15/19 09:30 Respiratory Rate 18 01/15/19 09:30 Blood Pressure 148/75 01/15/19 09:30 O2 Sat by Pulse Oximetry (%)
[2019-01-15] MEDS: THIAMINE HCL 100 MG TABLET (FP) PO SCH (21:48)
[2019-01-15] MEDS: DOCUSATE SODIUM 100 MG CAPSULE (FP) PO SCH (21:48)
[2019-01-15] MEDS: ATORVASTATIN CA 10 MG TABLET (FP) PO SCH (21:48)
[2019-01-15] MEDS: MELATONIN 5 MG TABLETS PO PRN (21:49)
[2019-01-16] MEDS: METHADONE HCL 40 MG DISPERSABLE TABLET PO SCH (06:34)
[2019-01-16] MEDS: GABAPENTIN 300 MG CAPSULE (FP) PO SCH ×3 (06:34→21:19)
[2019-01-16] MEDS: INSULIN (NOVOLOG) ASPART 100 UNITS/ML 10ML VIAL SQ SCH (06:49)
[2019-01-16] MEDS: metFORMIN HCL 500 MG TABLET (FP) PO SCH (06:49)
[2019-01-16] MEDS ORDERED: INSULIN (NOVOLOG) ASPART 100 UNITS/ML 10ML VIAL SQ SCH (07:00)
[2019-01-16] MEDS: amLODIPine BESYLATE 5 MG TABLET (FP) PO SCH (09:50)
[2019-01-16] MEDS: PRENATAL VITAMINS W/ FOLIC ACID TABLET (FP) PO SCH (09:50)
[2019-01-16] MEDS: MELATONIN 5 MG TABLETS PO PRN (21:18)
[2019-01-16] MEDS: ATORVASTATIN CA 10 MG TABLET (FP) PO SCH (21:19)
[2019-01-16] MEDS: THIAMINE HCL 100 MG TABLET (FP) PO SCH (21:19)
[2019-01-16] MEDS: DOCUSATE SODIUM 100 MG CAPSULE (FP) PO SCH (21:19)
[2019-01-17] MEDS: GABAPENTIN 300 MG CAPSULE (FP) PO SCH ×3 (05:56→21:41)
[2019-01-17] MEDS: METHADONE HCL 40 MG DISPERSABLE TABLET PO SCH (05:56)
[2019-01-17] MEDS: INSULIN (NOVOLOG) ASPART 100 UNITS/ML 10ML VIAL SQ SCH (06:24)
[2019-01-17] MEDS: metFORMIN HCL 500 MG TABLET (FP) PO SCH (06:24)
[2019-01-17] MEDS: PRENATAL VITAMINS W/ FOLIC ACID TABLET (FP) PO SCH (10:04)
[2019-01-17] MEDS: amLODIPine BESYLATE 5 MG TABLET (FP) PO SCH (10:04)
[2019-01-17] MEDS: MELATONIN 5 MG TABLETS PO PRN (21:41)
[2019-01-17] MEDS: THIAMINE HCL 100 MG TABLET (FP) PO SCH (21:41)
[2019-01-17] MEDS: DOCUSATE SODIUM 100 MG CAPSULE (FP) PO SCH (21:41)
[2019-01-17] MEDS: ATORVASTATIN CA 10 MG TABLET (FP) PO SCH (21:41)
[2019-01-18] MEDS: METHADONE HCL 40 MG DISPERSABLE TABLET PO SCH (06:34)
[2019-01-18] MEDS: GABAPENTIN 300 MG CAPSULE (FP) PO SCH ×3 (06:35→21:25)
[2019-01-18] MEDS: metFORMIN HCL 500 MG TABLET (FP) PO SCH (06:38)
[2019-01-18] MEDS: INSULIN (NOVOLOG) ASPART 100 UNITS/ML 10ML VIAL SQ SCH (06:38)
[2019-01-18] MEDS: amLODIPine BESYLATE 5 MG TABLET (FP) PO SCH (09:50)
[2019-01-18] MEDS: PRENATAL VITAMINS W/ FOLIC ACID TABLET (FP) PO SCH (09:50)
[2019-01-18] MEDS: DOCUSATE SODIUM 100 MG CAPSULE (FP) PO SCH (21:24)
[2019-01-18] MEDS: ATORVASTATIN CA 10 MG TABLET (FP) PO SCH (21:25)
[2019-01-18] MEDS: MELATONIN 5 MG TABLETS PO PRN (21:25)
[2019-01-18] MEDS: THIAMINE HCL 100 MG TABLET (FP) PO SCH (21:25)
[2019-01-19] MEDS: GABAPENTIN 300 MG CAPSULE (FP) PO SCH ×3 (06:07→21:24)
[2019-01-19] MEDS: METHADONE HCL 40 MG DISPERSABLE TABLET PO SCH (06:07)
[2019-01-19] MEDS: metFORMIN HCL 500 MG TABLET (FP) PO SCH (06:26)
[2019-01-19] MEDS: INSULIN (NOVOLOG) ASPART 100 UNITS/ML 10ML VIAL SQ SCH (06:26)
[2019-01-19] MEDS: amLODIPine BESYLATE 5 MG TABLET (FP) PO SCH (10:07)
[2019-01-19] MEDS: PRENATAL VITAMINS W/ FOLIC ACID TABLET (FP) PO SCH (10:07)
[2019-01-19] MEDS: ATORVASTATIN CA 10 MG TABLET (FP) PO SCH (21:24)
[2019-01-19] MEDS: DOCUSATE SODIUM 100 MG CAPSULE (FP) PO SCH (21:24)
[2019-01-19] MEDS: THIAMINE HCL 100 MG TABLET (FP) PO SCH (21:24)
[2019-01-19] MEDS: MELATONIN 5 MG TABLETS PO PRN (21:24)
[2019-01-20] MEDS: METHADONE HCL 40 MG DISPERSABLE TABLET PO SCH (06:22)
[2019-01-20] MEDS: GABAPENTIN 300 MG CAPSULE (FP) PO SCH ×3 (06:22→21:30)
[2019-01-20] MEDS: metFORMIN HCL 500 MG TABLET (FP) PO SCH (07:02)
[2019-01-20] MEDS: INSULIN (NOVOLOG) ASPART 100 UNITS/ML 10ML VIAL SQ SCH (07:03)
[2019-01-20] MEDS: amLODIPine BESYLATE 5 MG TABLET (FP) PO SCH (09:33)
[2019-01-20] MEDS: PRENATAL VITAMINS W/ FOLIC ACID TABLET (FP) PO SCH (09:33)
[2019-01-20] MEDS: DOCUSATE SODIUM 100 MG CAPSULE (FP) PO SCH (21:29)
[2019-01-20] MEDS: THIAMINE HCL 100 MG TABLET (FP) PO SCH (21:29)
[2019-01-20] MEDS: MELATONIN 5 MG TABLETS PO PRN (21:30)
[2019-01-20] MEDS: ATORVASTATIN CA 10 MG TABLET (FP) PO SCH (21:30)
[2019-01-21] MEDS: METHADONE HCL 40 MG DISPERSABLE TABLET PO SCH (06:01)
[2019-01-21] MEDS: GABAPENTIN 300 MG CAPSULE (FP) PO SCH ×3 (06:01→21:26)
[2019-01-21] MEDS: INSULIN (NOVOLOG) ASPART 100 UNITS/ML 10ML VIAL SQ SCH (06:50)
[2019-01-21] MEDS: metFORMIN HCL 500 MG TABLET (FP) PO SCH (06:50)
[2019-01-21] MEDS: PRENATAL VITAMINS W/ FOLIC ACID TABLET (FP) PO SCH (09:32)
[2019-01-21] MEDS: amLODIPine BESYLATE 5 MG TABLET (FP) PO SCH (09:32)
[2019-01-21] MEDS: THIAMINE HCL 100 MG TABLET (FP) PO SCH (21:26)
[2019-01-21] MEDS: ATORVASTATIN CA 10 MG TABLET (FP) PO SCH (21:26)
[2019-01-21] MEDS: MELATONIN 5 MG TABLETS PO PRN (21:26)
[2019-01-21] MEDS: DOCUSATE SODIUM 100 MG CAPSULE (FP) PO SCH (21:26)
[2019-01-22] MEDS: METHADONE HCL 40 MG DISPERSABLE TABLET PO SCH (05:53)
[2019-01-22] MEDS: GABAPENTIN 300 MG CAPSULE (FP) PO SCH ×3 (05:53→21:52)
[2019-01-22] MEDS: MAGNESIUM HYDROX 2400MG/30ML ORAL SUSPENSION 30 ML CUP PO PRN (06:37)
[2019-01-22] MEDS: metFORMIN HCL 500 MG TABLET (FP) PO SCH (06:45)
[2019-01-22] MEDS: INSULIN (NOVOLOG) ASPART 100 UNITS/ML 10ML VIAL SQ SCH (06:45)
[2019-01-22] MEDS: PRENATAL VITAMINS W/ FOLIC ACID TABLET (FP) PO SCH (09:39)
[2019-01-22] MEDS: amLODIPine BESYLATE 5 MG TABLET (FP) PO SCH (09:39)
[2019-01-22] MEDS: MAGNESIUM CITRATE 300 ML BOTTLE PO PRN (14:51)
[2019-01-22] MEDS: THIAMINE HCL 100 MG TABLET (FP) PO SCH (21:52)
[2019-01-22] MEDS: DOCUSATE SODIUM 100 MG CAPSULE (FP) PO SCH (21:52)
[2019-01-22] MEDS: ATORVASTATIN CA 10 MG TABLET (FP) PO SCH (21:52)
[2019-01-22] MEDS: MELATONIN 5 MG TABLETS PO PRN (21:52)
[2019-01-23] MEDS: GABAPENTIN 300 MG CAPSULE (FP) PO SCH ×3 (05:49→21:35)
[2019-01-23] MEDS: METHADONE HCL 40 MG DISPERSABLE TABLET PO SCH (05:49)
[2019-01-23] MEDS: INSULIN (NOVOLOG) ASPART 100 UNITS/ML 10ML VIAL SQ SCH (06:48)
[2019-01-23] MEDS: metFORMIN HCL 500 MG TABLET (FP) PO SCH (06:48)
[2019-01-23] MEDS: PRENATAL VITAMINS W/ FOLIC ACID TABLET (FP) PO SCH (10:05)
[2019-01-23] MEDS: amLODIPine BESYLATE 5 MG TABLET (FP) PO SCH (10:05)
[2019-01-23] MEDS: DOCUSATE SODIUM 100 MG CAPSULE (FP) PO SCH (21:35)
[2019-01-23] MEDS: THIAMINE HCL 100 MG TABLET (FP) PO SCH (21:35)
[2019-01-23] MEDS: MELATONIN 5 MG TABLETS PO PRN (21:35)
[2019-01-23] MEDS: ATORVASTATIN CA 10 MG TABLET (FP) PO SCH (21:35)
[2019-01-24] MEDS: GABAPENTIN 300 MG CAPSULE (FP) PO SCH ×3 (06:10→21:36)
[2019-01-24] MEDS: METHADONE HCL 40 MG DISPERSABLE TABLET PO SCH (06:11)
[2019-01-24] MEDS: metFORMIN HCL 500 MG TABLET (FP) PO SCH (07:00)
[2019-01-24] MEDS: INSULIN (NOVOLOG) ASPART 100 UNITS/ML 10ML VIAL SQ SCH (07:00)
[2019-01-24] MEDS: PRENATAL VITAMINS W/ FOLIC ACID TABLET (FP) PO SCH (10:04)
[2019-01-24] MEDS: amLODIPine BESYLATE 5 MG TABLET (FP) PO SCH (10:04)
[2019-01-24] MEDS: THIAMINE HCL 100 MG TABLET (FP) PO SCH (21:35)
[2019-01-24] MEDS: ATORVASTATIN CA 10 MG TABLET (FP) PO SCH (21:36)
[2019-01-24] MEDS: DOCUSATE SODIUM 100 MG CAPSULE (FP) PO SCH (21:36)
[2019-01-24] MEDS: MELATONIN 5 MG TABLETS PO PRN (21:36)
[2019-01-25] MEDS: GABAPENTIN 300 MG CAPSULE (FP) PO SCH ×3 (06:10→21:20)
[2019-01-25] MEDS: METHADONE HCL 40 MG DISPERSABLE TABLET PO SCH (06:10)
[2019-01-25] MEDS: INSULIN (NOVOLOG) ASPART 100 UNITS/ML 10ML VIAL SQ SCH (06:12)
[2019-01-25] MEDS: metFORMIN HCL 500 MG TABLET (FP) PO SCH (07:40)
[2019-01-25] MEDS: PRENATAL VITAMINS W/ FOLIC ACID TABLET (FP) PO SCH (09:50)
[2019-01-25] MEDS: amLODIPine BESYLATE 5 MG TABLET (FP) PO SCH (09:50)
[2019-01-25] MEDS: THIAMINE HCL 100 MG TABLET (FP) PO SCH (21:20)
[2019-01-25] MEDS: MELATONIN 5 MG TABLETS PO PRN (21:20)
[2019-01-25] MEDS: ATORVASTATIN CA 10 MG TABLET (FP) PO SCH (21:21)
[2019-01-25] MEDS: DOCUSATE SODIUM 100 MG CAPSULE (FP) PO SCH (21:21)
[2019-01-26] MEDS: GABAPENTIN 300 MG CAPSULE (FP) PO SCH (06:08)
[2019-01-26] MEDS: METHADONE HCL 40 MG DISPERSABLE TABLET PO SCH (06:08)
[2019-01-26] MEDS: INSULIN (NOVOLOG) ASPART 100 UNITS/ML 10ML VIAL SQ SCH (06:44)
[2019-01-26] MEDS: metFORMIN HCL 500 MG TABLET (FP) PO SCH (06:44)
[2019-01-26 06:47] VITALS: TEMP 98.1
[2019-01-26] MEDS: PRENATAL VITAMINS W/ FOLIC ACID TABLET (FP) PO SCH (10:02)
[2019-01-26] MEDS: amLODIPine BESYLATE 5 MG TABLET (FP) PO SCH (10:02)
[2019-01-26 11:01] VITALS: BP 155/95; PULSE 82
--- NOTE | 2019-01-26 12:09 | PN ---
[facility] Progress Note Note: PATIENT DISCHARGED FROM REHAB TODAY AND STATES HE ACCOMPLISHED ALL REHAB GOALS. PATIENT ON [employer] MAINTENA[employer]CE PROGRAM AND IS SCHEDULED TO RETURN TO [facility] 01/27/19 AT 8AM. PATIENT IS MEDICALLY STABLE AND DENIES SI/HI. PATIENT ENCOURAGED TO FOLLOW UP WITH PCP WITHIN ONE WEEK OF DISCHARGE TO CONTINUE MEDICAL MANAGEMENT. Vital Signs Temperature 98.1 F 01/26/19 06:46 Pulse Rate 82 01/26/19 09:30 Respiratory Rate 18 01/26/19 09:30 Blood Pressure 155/95 01/26/19 09:30 O2 Sat by Pulse Oximetry (%) Laboratory Tests 12/30/18 12/31/18 12/31/18 16:47 06:09 16:46 POC Glucometer 88 95 109 Hemoglobin A1c % 01/01/19 01/01/19 01/02/19 06:08 16:24 06:14 POC Glucometer 139 112 87 Hemoglobin A1c % 01/02/19 01/03/19 01/03/19 16:44 05:57 16:34 POC Glucometer 143 86 111 Hemoglobin A1c % 01/04/19 01/04/19 01/05/19 06:15 16:51 05:43 POC Glucometer 79 81 69 Hemoglobin A1c % 01/05/19 01/06/19 01/06/19 16:41 06:12 16:43 POC Glucometer 90 87 98 Hemoglobin A1c % 01/07/19 01/07/19 01/07/19 06:01 08:50 16:32 POC Glucometer 73 71 Hemoglobin A1c % 5.8 01/08/19 01/08/19 01/09/19 05:51 16:37 05:53 POC Glucometer 68 96 78 Hemoglobin A1c % 01/09/19 01/10/19 01/10/19 16:23 06:34 16:42 POC Glucometer 129 149 104 Hemoglobin A1c % 01/11/19 01/11/19 01/12/19 06:23 16:28 06:02 POC Glucometer 111 92 73 Hemoglobin A1c % 01/12/19 01/13/19 01/13/19 16:44 06:14 16:50 POC Glucometer 107 93 78 Hemoglobin A1c % 01/14/19 01/14/19 01/15/19 06:00 16:54 06:23 POC Glucometer 83 82 88 Hemoglobin A1c % 01/16/19 01/17/19 01/18/19 06:33 05:55 06:34 POC Glucometer 123 84 82 Hemoglobin A1c % 01/19/19 01/20/19 01/21/19 06:07 06:24 06:00 POC Glucometer 87 93 71 Hemoglobin A1c % 01/22/19 01/23/19 01/24/19 05:53 05:48 06:11 POC Glucometer 79 74 85 Hemoglobin A1c % 01/25/19 01/26/19 06:10 06:07 POC Glucometer 77 78 Hemoglobin A1c % Home Medications Medication Instructions Recorded Multivitamin [Poly-Vitamin] 1 each PO DAILY 12/02/15 Omeprazole 20 mg PO HS #30 capsule. 01/25/16 Cyanocobalamin [Vitamin B12 -] 100 mcg PO DAILY 07/13/16 Albuterol Sulfate Inhaler - 2 puff IH Q4H PRN #1 inhaler 08/09/16 [Ventolin HFA Inhaler -] Bupropion HCl [Wellbutrin Xl -] 300 mg PO DAILY #30 tab.sr.24h 08/09/16 Amlodipine Besylate [Norvasc -] 5 mg PO DAILY #30 tablet 12/29/18 Atorvastatin Ca [Lipitor] 10 mg PO HS #30 tablet 12/29/18 Gabapentin [Neurontin] 300 mg PO TID 12/30/18 metFORMIN HCL [Glucophage -] 500 mg PO DAILY@0700 #15 tablet 01/26/19
== END 2019-01-26 10:20 | disposition home or self-care (01) | DRG 895 ==
LOC: YASAS 12:18 → Y3W 12:19
PROVIDERS: ADMIT Neuromusculoskeletal Medicine & OMM; ATTEND Neuromusculoskeletal Medicine & OMM
PROC: HZ42ZZZ Group Counseling for Substance Abuse Treatment, Cognitive-Behavioral (ICD-10-PCS; principal; 2018-12-30)
DX: F10.20 Alcohol dependence, uncomplicated (principal); F11.20 Opioid dependence, uncomplicated; F12.20 Cannabis dependence, uncomplicated; F17.210 Nicotine dependence, cigarettes, uncomplicated; I10 Essential (primary) hypertension; Z21 Asymptomatic human immunodeficiency virus [HIV] infection status; E11.9 Type 2 diabetes mellitus without complications; E78.00 Pure hypercholesterolemia, unspecified; K21.9 Gastro-esophageal reflux disease without esophagitis; M54.5 Low back pain; G89.29 Other chronic pain; K40.90 Unilateral inguinal hernia, without obstruction or gangrene, not specified as recurrent; R26.2 Difficulty in walking, not elsewhere classified; Z99.89 Dependence on other enabling machines and devices; Z79.84 Long term (current) use of oral hypoglycemic drugs
CPT/HCPCS: 82962; 83036